=== PATIENT | female | born 1990 | race African-American/Black ===

== ENCOUNTER 2017-01-23 11:41 | Emergency (ER) | payer OTHER ==
[~2017-01-23] VITALS: Ht 157.5 cm; Wt 108.9 kg
[~2017-01-23 11:41] MED LIST: ALBU17AE3 IH; ASPI1POW PO; AZIT-21 PO; BIOT1TAB2 PO; CEFU500T63 PO; CEPH500C PO; CRUT1EAC16 MC; ESTR1TAB24 PO; FERR-74 PO; GUAI120L56 PO; HYDR-1231 PO; IBUP-1780 PO; METR500T21 PO; NORG1TAB14 PO; NORG1TAB15 PO; PHEN100T17 PO; PRD20T PO; PRM25T PO; SULF1TAB35 PO; SULF1TAB7 PO; TRAM50TA2 PO
[2017-01-23 12:31] LABS: BASOPHILS % (AUTO) 0 % (0-10); EOSINOPHILS # (AUTO) 0.1 10^3/uL (0.0-0.3); EOSINOPHILS % (AUTO) 2 % (0-10); LYMPHOCYTES # (AUTO) 2.5 X 10^3 (1.0-4.0); LYMPHOCYTES % (AUTO) 39 % (12-44); MEAN CORPUSCULAR HEMOGLOBIN 27 PG (25-34); MEAN CORPUSCULAR HGB CONC 33 G/DL (32-36); MEAN CORPUSCULAR VOLUME 83 FL (80-99); MEAN PLATELET VOLUME 10.4 FL (7.4-10.4); MONOCYTES # (AUTO) 0.3 X 10^3 (0.0-1.0); MONOCYTES % (AUTO) 5 % (0-12); NEUTROPHILS # (AUTO) 3.5 X 10^3 (1.8-7.8); NEUTROPHILS % (AUTO) 54 % (42-75); PLATELET COUNT 369 10^3/uL (130-400); RED BLOOD COUNT 4.23 10^6/uL (4.35-5.85); RED CELL DISTRIBUTION WIDTH 14.9 % (10.0-14.5); WHITE BLOOD COUNT 6.4 10^3/uL (4.3-11.0)
[2017-01-23 12:34] LABS: BILIRUBIN,URINE NEGATIVE (NEGATIVE); KETONES,URINE NEGATIVE (NEGATIVE); LEUKOCYTE ESTERASE ,URINE NEGATIVE (NEGATIVE); NITRITE,URINE NEGATIVE (NEGATIVE); PH,URINE 5 (5-9); PROTEIN,URINE 1+ (NEGATIVE); UROBILINOGEN,URINE NORMAL (NORMAL)
[2017-01-23 12:43] LABS: SQUAMOUS EPITHELIAL CELL,UR 0-2 /HPF
[2017-01-23] MEDS ORDERED: KETOROLAC 30 MG/ML VIAL IVP ONE (12:45)
[2017-01-23 12:49] LABS: ALANINE AMINOTRANSFERASE 13 U/L (0-55); ANION GAP 7 MMOL/L (5-14); ASPARTATE AMINO TRANSFERASE 15 U/L (5-34); BILIRUBIN,TOTAL 0.5 MG/DL (0.1-1.0); BLOOD UREA NITROGEN 10 MG/DL (7-18); BUN/CREATININE RATIO 13; CALCIUM 9.4 MG/DL (8.5-10.1); CARBON DIOXIDE 25 MMOL/L (21-32); CHLORIDE 107 MMOL/L (98-107); CREATININE SERUM 0.77 MG/DL (0.60-1.30); GFR ESTIMATED > 60; GLUCOSE 83 MG/DL (70-105); POTASSIUM 3.9 MMOL/L (3.6-5.0); SODIUM 139 MMOL/L (135-145); TOTAL PROTEIN 8.2 G/DL (6.4-8.2)
--- NOTE | 2017-01-23 12:59 | ED Chest Pain ---
General Chief Complaint: Chest Wall/Rib Pain Stated Complaint: CHEST PAIN/TIGHTNESS Nursing Triage Note: COMPLAINS OF PAIN IN HER CHEST WHEN SHE TAKES A DEEP BREATH THAT BECAME WORSE THIS AM. . STATES SHE THINKS IT IS RELATED TO HER PERIOD AND PASSING LARGE CLOTS. Nursing Sepsis Screen: No Definite Risk Source: patient Exam Limitations: no limitations History of Present Illness Time seen by provider: 12:58 Initial Comments To ER with reports of pain in her chest that is sharp in nature and worse with deep breathing. Became worse this morning but has been going on for one to 2 weeks. She has a mild infrequent dry cough. She does report shortness of breath. Sometimes chest heaviness. No fevers or chills. She also states that she is on her menstrual cycle and has been bleeding more heavily than usual. Timing/Duration: getting worse, intermittent Severity/Quality: moderate Radiation: no radiation Activities at Onset: none Allergies and Home Medications Allergies Coded Allergies: No Known Drug Allergies (Unverified , 07/15/13) Home Medications Albuterol 17 Gm Inh, 2 SPRAY IH Q4H PRN for SHORTNESS OF BREATH, #1 FOR BREATHING Prescribed by: MO ANAND on 04/21/142024 Review of Systems Constitutional: see HPI, No chills, No fever EENTM: No Symptoms Reported Respiratory: See HPI, Cough Cardiovascular: See HPI, Chest Pain, Denies Edema, Denies Irregular Heart Rate , Denies Lightheadedness Gastrointestinal: No Symptoms Reported Genitourinary: No Symptoms Reported Musculoskeletal: no symptoms reported Skin: no symptoms reported Psychiatric/Neurological: No Symptoms Reported Endocrine: No Symptoms Reported Past Axhouxh-Jdwomy-Bdzmwb Hx Patient Social History Alcohol Use: Occasionally Uses Recreational Drug Use: No Smoking Status: Never a Smoker Recent Foreign Travel: No Contact w/Someone Who Travel: No Recent Infectious Disease Expo: No Immunizations Up To Date Tetanus Booster (TDap): More than 5yrs PED Vaccines UTD: Yes Seasonal Allergies Seasonal Allergies: Yes Surgeries HX Surgeries: No Respiratory Hx Respiratory Disorders: Yes Respiratory Disorders: Asthma Cardiovascular Hx Cardiac Disorders: No Neurological Hx Neurological Disorders: No Reproductive System Hx Reproductive Disorders: No Sexually Transmitted Disease: Yes HIV/AIDS: No 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, Ovarian Cyst Genitourinary Hx Genitourinary Disorders: No Gastrointestinal Hx Gastrointestinal Disorders: No Musculoskeletal Hx Musculoskeletal Disorders: No Endocrine Hx Endocrine Disorders: No HEENT HX ENT Disorders: No Cancer Hx Cancer: No Psychosocial Hx Psychiatric Problems: No Integumentary HX Skin/Integumentary Disorder: No Blood Transfusions Hx Blood Disorders: No Family Medical History Family Medial History: Diabetes mellitus 19 MOTHER FH: breast cancer in first degree relative 19 MOTHER Physical Exam Vital Signs Vital Sign - Last 12Hours 01/23/17 11:59 Temp 98.0 Pulse 91 Resp 16 B/P (MAP) 114/74 Pulse Ox 97 Capillary Refill : Less Than 3 Seconds General Appearance: No Apparent Distress, WD/WN, Obese HEENT: PERRL/EOMI, TMs Normal Respiratory: Lungs Clear, Normal Breath Sounds, No Accessory Muscle Use, No Respiratory Distress, Other (chest is tender to palpation.) Cardiovascular: Regular Rate, Rhythm, Normal Peripheral Pulses Gastrointestinal: Normal Bowel Sounds, Non Tender, Soft Extremity: Normal Capillary Refill, Normal Inspection Neurologic/Psychiatric: Alert, Oriented x3, No Motor/Sensory Deficits Skin: Normal Color, Warm/Dry Progress/Results/Core Measures Results/Orders Lab Results Laboratory Tests Test 01/23/17 12:25 01/23/17 12:27 Range/Units White Blood Count 6.4 4.3-11.0 10^3/uL Red Blood Count 4.23 L 4.35-5.85 10^6/uL Hemoglobin 11.4 L 11.5-16.0 G/DL Hematocrit 35 35-52 % Mean Corpuscular Volume 83 80-99 FL Mean Corpuscular Hemoglobin 27 25-34 PG Mean Corpuscular Hemoglobin Concent 33 32-36 G/DL Red Cell Distribution Width 14.9 H 10.0-14.5 % Platelet Count 369 130-400 10^3/uL Mean Platelet Volume 10.4 7.4-10.4 FL Neutrophils (%) (Auto) 54 42-75 % Lymphocytes (%) (Auto) 39 12-44 % Monocytes (%) (Auto) 5 0-12 % Eosinophils (%) (Auto) 2 0-10 % Basophils (%) (Auto) 0 0-10 % Neutrophils # (Auto) 3.5 1.8-7.8 X 10^3 Lymphocytes # (Auto) 2.5 1.0-4.0 X 10^3 Monocytes # (Auto) 0.3 0.0-1.0 X 10^3 Eosinophils # (Auto) 0.1 0.0-0.3 10^3/uL Basophils # (Auto) 0.0 0.0-0.1 10^3/uL Sodium Level 139 135-145 MMOL/L Potassium Level 3.9 3.6-5.0 MMOL/L Chloride Level 107 98-107 MMOL/L Carbon Dioxide Level 25 21-32 MMOL/L Anion Gap 7 5-14 MMOL/L Blood Urea Nitrogen 10 7-18 MG/DL Creatinine 0.77 0.60-1.30 MG/DL Estimat Glomerular Filtration Rate > 60 BUN/Creatinine Ratio 13 Glucose Level 83 70-105 MG/DL Calcium Level 9.4 8.5-10.1 MG/DL Total Bilirubin 0.5 0.1-1.0 MG/DL Aspartate Amino Transf (AST/SGOT) 15 5-34 U/L Alanine Aminotransferase (ALT/SGPT) 13 0-55 U/L Alkaline Phosphatase 81 40-136 U/L Total Protein 8.2 6.4-8.2 G/DL Albumin 4.0 3.2-4.5 G/DL Urine Color YELLOW Urine Clarity CLEAR Urine pH 5 5-9 Urine Specific [place] 1.020 1.016-1.022 Urine Protein 1+ H NEGATIVE Urine Glucose (UA) NEGATIVE NEGATIVE Urine Ketones NEGATIVE NEGATIVE Urine Nitrite NEGATIVE NEGATIVE Urine Bilirubin NEGATIVE NEGATIVE Urine Urobilinogen NORMAL NORMAL MG/DL Urine Leukocyte Esterase NEGATIVE NEGATIVE Urine RBC (Auto) 5+ H NEGATIVE Urine RBC 50-100 H /HPF Urine WBC NONE /HPF Urine Squamous Epithelial Cells 0-2 /HPF Urine Crystals NONE /LPF Urine Bacteria NEGATIVE /HPF Urine Casts NONE /LPF Urine Mucus NEGATIVE /LPF Urine Culture Indicated NO My Orders Orders - MO ANAND H[employer]TING [employer]IDE Cbc With Automated Diff (01/23/17 12:04) Saline Lock/Iv-Start (01/23/17 12:04) Ua Culture If Indicated (01/23/17 12:04) Urine Bedside (01/23/17 12:04) Ekg Tracing (01/23/17 12:04) Chest 1 View, Ap/Pa Only (01/23/17 12:04) Comprehensive Metabolic Panel (01/23/17 12:25) Ct Angio Chest W (01/23/17 12:25) Ketorolac Injection (Toradol Injection) (01/23/17 12:45) Iohexol Injection (Omnipaque 350 Mg/Ml 1 (01/23/17 13:15) Ns (Ivpb) (Sodium Chloride 0.9% Ivpb Bag (01/23/17 13:15) Medications Given in ED Current Medications Medications Dose Ordered Sig/Florentin Route Start Time Stop Time Status Last Admin Dose Admin Iohexol 125 ml ONCE ONCE IV 01/23/17 13:15 01/23/17 13:16 DC 01/23/17 13:45 125 ML Ketorolac Tromethamine 30 mg ONCE ONCE IVP 01/23/17 12:45 01/23/17 12:46 DC 01/23/17 12:54 30 MG Sodium Chloride 80 ml ONCE ONCE IV 01/23/17 13:15 01/23/17 13:16 DC 01/23/17 13:45 80 ML Vital Signs/I&O Vital Sign - Last 12Hours 01/23/17 11:59 Temp 98.0 Pulse 91 Resp 16 B/P (MAP) 114/74 Pulse Ox 97 Blood Pressure Mean: 87 Point of Care Testing Urine -Bedside: Negative Diagnostic Imaging Diagonstic Imaging: CT Comments NAME: [facility] REC#: [id number] PT STATUS: REG ER : 1990 PHYSICIAN: MO ANAND [employer] GUIDE ADMIT DATE: 01/23/17/ER Draft Date of Exam:01/23/17 CT ANGIO CHEST W PROCEDURE: CT angiography of the chest with contrast. TECHNIQUE: Multiple contiguous axial images were obtained through the chest after uneventful bolus administration of intravenous contrast. Reconstructed CTA MIP acquisitions were also performed. INDICATION: Chest pain. 125 mL of Omnipaque-350 is administered intravenously. COMPARISON: 01/09/2015. FINDINGS: There is good opacification of the pulmonary arteries with no filling defects to suggest pulmonary embolism. The thoracic aorta is normal in caliber. No dissection or aneurysm. The heart size is borderline enlarged. There is no pericardial or pleural effusion. Anterior mediastinal soft tissue density is suggestive of the thymus with no mediastinal mass or lymphadenopathy seen. No axillary or hilar lymphadenopathy. The lungs demonstrate no significant consolidation or mass. The sections in the upper abdomen appear unremarkable. The osseous structures appear grossly unremarkable. IMPRESSION: There is no PE or aortic dissection. Borderline cardiac size. Dictated on workstation # [id number] Dict: 01/23/17 1415 Trans: 01/23/17 1432 [id number] Interpreted by: MICAH BOYD MD Electronically signed by: Departure Communication Progress Notes 1402 patient reports feeling significant short of breath at this time. Her respiratory rate is 22 and oxygen saturation 100 percent on room air.- Impression Impression: Primary Impression: Dyspnea Disposition: HOME, SELF-CARE Condition: Stable Departure-Patient Inst. Decision time for Depature: 14:22 Referrals: NO,LOCAL PHYSICIAN (PCP/Family) Primary Care Physician Patient Instructions: Shortness of Breath (Dyspnea) Add. Discharge Instructions: 1. Follow-up with her regular doctor later this week 2. Return to ER for any worsening 3. All discharge instructions reviewed with patient and/or family. Voiced understanding. MO ANAND APRN January 23, 2017 12:59
--- NOTE | 2017-01-23 13:01 | Diagnostic Imaging Report ---
Portable upright radiograph of the chest. INDICATION: Anterior chest wall pain. FINDINGS: The lungs are clear. The heart size is borderline in size, probably exaggerated by the portable AP technique. No effusion or pneumothorax. The mediastinum and yung appear unremarkable. IMPRESSION: Prominent cardiac size, probably secondary to the portable AP technique. No definite abnormality. Dictated by: Dictated on workstation # [id number]
[2017-01-23] MEDS ORDERED: NS 100 ML (IVPB) BAG IV ONE (13:15)
[2017-01-23] MEDS ORDERED: IOHEXOL 350 MG/ML 150 ML (OMNIPAQUE 350) VIAL IV ONE (13:15)
--- NOTE | 2017-01-23 14:33 | Diagnostic Imaging Report ---
PROCEDURE: CT angiography of the chest with contrast. TECHNIQUE: Multiple contiguous axial images were obtained through the chest after uneventful bolus administration of intravenous contrast. Reconstructed CTA MIP acquisitions were also performed. INDICATION: Chest pain. 125 mL of Omnipaque-350 is administered intravenously. COMPARISON: 01/09/2015. FINDINGS: There is good opacification of the pulmonary arteries with no filling defects to suggest pulmonary embolism. The thoracic aorta is normal in caliber. No dissection or aneurysm. The heart size is borderline enlarged. There is no pericardial or pleural effusion. Anterior mediastinal soft tissue density is suggestive of the thymus with no mediastinal mass or lymphadenopathy seen. No axillary or hilar lymphadenopathy. The lungs demonstrate no significant consolidation or mass. The sections in the upper abdomen appear unremarkable. The osseous structures appear grossly unremarkable. IMPRESSION: There is no PE or aortic dissection. Borderline cardiac size. Dictated by: Dictated on workstation # [id number]
[2017-01-23 14:46] VITALS: BP 124/87
== END 2017-01-23 14:46 | disposition home or self-care (01) ==
LOC: EDUNIT# 11:41 → ER 11:45
DX: R06.00 Dyspnea, unspecified (principal)
CPT/HCPCS: 36415; 71010; 71275; 80053; 81000; 84703; 85025

== ENCOUNTER → 2017-06-17 | Outpatient (CLI) | payer OTHER, BC ==
[~2017-06-17] MED LIST changes: +HYDR-3812 PO; +IBUP-1773 PO; +RT-ALBUINH IH
--- NOTE | 2017-06-17 14:28 | Diagnostic Imaging Report ---
Transabdominal and transvaginal pelvic ultrasound. INDICATION: Pelvic pain. FINDINGS: The uterus is 7.8 x 4.9 x 4.4 cm. The endometrial stripe is 0.5 cm in thickness. The myometrium is slightly heterogeneous with a posterior myometrial body hypoechoic lesion with suggestion of calcification seen measuring 1.9 x 1.9 x 2.4 cm compatible with a fibroid. This does not have a submucosal component or an exophytic component. The right ovary is 3.9 x 1.8 x 2.6 cm. The left ovary is 1.7 x 2.6 x 1.3 cm. Arterial and venous waveforms are demonstrated over both ovaries. IMPRESSION: 2.4 cm myometrial fibroid is seen in the posterior aspect of the uterine body. Dictated by: Dictated on workstation # [id number]
== END ==
LOC: RAD 13:12
PROVIDERS: ATTEND Obstetrics & Gynecology
DX: D25.9 Leiomyoma of uterus, unspecified (principal)
CPT/HCPCS: 76830; 76856

== ENCOUNTER 2017-06-18 11:09 | Outpatient (CLI) | payer OTHER, BC ==
[~2017-06-18] VITALS: Ht 157.5 cm; Wt 108.9 kg
[~2017-06-18 11:09] MED LIST changes: -HYDR-3812 PO; -IBUP-1773 PO; -RT-ALBUINH IH
[2017-06-18] MEDS ORDERED: RT-ALBUINH IH ×2 (11:19)
[2017-06-19] MEDS ORDERED: HYDR-3812 PO ×2 (10:16)
[2017-06-19] MEDS ORDERED: IBUP-1773 PO ×2 (11:51)
== END 2017-06-18 11:24 ==
LOC: PREOP 11:09
PROVIDERS: ATTEND Obstetrics & Gynecology
DX: Z01.818 Encounter for other preprocedural examination (principal); N93.8 Other specified abnormal uterine and vaginal bleeding

== ENCOUNTER 2017-06-19 09:07 | Day surgery (SDC) | payer OTHER, BC ==
[~2017-06-19] VITALS: Ht 157.5 cm; Wt 108.9 kg
[~2017-06-19 09:07] MED LIST changes: +RT-ALBUINH IH
[2017-06-19 09:21] VITALS: BP 131/89
[2017-06-19] MEDS ORDERED: LACTATED RINGERS 1,000 ML IV SCH (09:30)
--- NOTE | 2017-06-19 09:37 | Progress Note-Pre Operative ---
Pre-Operative Progress Note H&P Reviewed The H&P was reviewed, patient examined and no changes noted. Date Seen by Provider: Jun 19, 2017 Time Seen by Provider: 09: Date H&P Reviewed: Jun 19, 2017 Time H&P Reviewed: :30 Pre-Operative Diagnosis: AUB, Menorrahagia ROJAS CHANG DO Jun 19, 2017 09:37
[2017-06-19 09:43] LABS: BASOPHILS % (AUTO) 0 % (0-10); EOSINOPHILS # (AUTO) 0.1 10^3/uL (0.0-0.3); EOSINOPHILS % (AUTO) 2 % (0-10); LYMPHOCYTES # (AUTO) 2.5 X 10^3 (1.0-4.0); LYMPHOCYTES % (AUTO) 44 % (12-44); MEAN CORPUSCULAR HEMOGLOBIN 24 PG (25-34); MEAN CORPUSCULAR HGB CONC 32 G/DL (32-36); MEAN CORPUSCULAR VOLUME 75 FL (80-99); MEAN PLATELET VOLUME 9.9 FL (7.4-10.4); MONOCYTES # (AUTO) 0.3 X 10^3 (0.0-1.0); MONOCYTES % (AUTO) 5 % (0-12); NEUTROPHILS # (AUTO) 2.9 X 10^3 (1.8-7.8); NEUTROPHILS % (AUTO) 49 % (42-75); PLATELET COUNT 400 10^3/uL (130-400); RED BLOOD COUNT 4.13 10^6/uL (4.35-5.85); RED CELL DISTRIBUTION WIDTH 17.2 % (10.0-14.5); WHITE BLOOD COUNT 5.8 10^3/uL (4.3-11.0)
[2017-06-19] MEDS ORDERED: MIDAZOLAM 2 MG/2 ML (VERSED) VIAL ONE ×2 (10:08→10:45)
[2017-06-19] MEDS ORDERED: fentaNYL INJECTION 100 MCG/2 ML AMP ONE (10:08)
[2017-06-19] MEDS ORDERED: SEVOFLURANE (ULTANE) 15 ML INHAL SOLN ONE ×3 (10:09→11:40)
[2017-06-19] MEDS ORDERED: proPOfol 200 MG/20 ML (DIPRIVAN) VIAL IV ONE (10:09)
[2017-06-19] MEDS ORDERED: DEXAMETHASONE 10 MG/ML (DECADRON) 1 ML VIAL ONE (10:09)
[2017-06-19] MEDS ORDERED: ONDANSETRON 4 MG/2 ML (SDV) Z0FRAN ONE (10:09)
[2017-06-19] MEDS ORDERED: LIDOCAINE PF 2% 5 ML (XYLOCAINE) VIAL ONE (10:09)
[2017-06-19] MEDS ORDERED: HYDR-3812 PO ×2 (10:16)
[2017-06-19] MEDS ORDERED: BUPIVACAINE 0.25% 30 ML (SENSORCAINE) VIAL ONE (10:33)
--- NOTE | 2017-06-19 11:49 | Progress Note-Post Operative ---
Post-Operative Progess Note Surgeon (s)/Marketing Strategy Lead (s) Surgeon ROJAS CHANG DO Marketing Strategy Lead: none Pre-Operative Diagnosis AUB, Menorrahagia Post-Operative Diagnosis same Procedure & Operative Findings Date of Procedure 06/19/17 Procedure Performed/Findings D and C with hysteroscopy Anesthesia Type GETA Estimated Blood Loss Estimated blood loss (mL): min Specimens/Packing Specimens Removed endometrial curettings ROJAS CHANG DO Jun 19, 2017 11:49 am
--- NOTE | 2017-06-19 11:50 | Discharge Inst-Women's Service ---
Discharge Inst-Women's Serv Depart Medication/Instructions New, Converted or Re-Newed RX: RX on Chart Consults/Follow Up Additional Follow Up: Yes Orders/Referrals DR. Chang in 2-3 weeks Activity Activity: Activity as Tolerated Driving Instructions: No Driving for 1 Week NO SMOKING: NO SMOKING Nothing Inside Vagina: No Douching, No [place], No Tampons Diet Discharge Diet: No Restrictions Symptoms to Report to : Bleeding Excessive, Pain Increased, Fever Over 101 Degrees F, Vaginal Bleeding Increase, Questions/Concerns For Any Problems or Questions: Contact Your Physician ROJAS CHANG DO Jun 19, 2017 11:50 am
[2017-06-19] MEDS ORDERED: IBUP-1773 PO ×2 (11:51)
[2017-06-19] MEDS ORDERED: ONDANSETRON 4 MG/2 ML (SDV) Z0FRAN IVP PRN (12:00)
[2017-06-19] MEDS ORDERED: MEPERIDINE (DEMEROL) INJ 50 MG/ML IVP PRN (12:00)
[2017-06-19] MEDS ORDERED: morphine INJ 10 MG/ML 1ML (SYR OR VIAL) ONE (12:01)
[2017-06-19] MEDS: morphine INJ 10 MG/ML 1ML (SYR OR VIAL) IVP PRN ×2 (12:09→12:18)
[2017-06-19] MEDS ORDERED: KETOROLAC 30 MG/ML VIAL IVP NR (12:30)
[2017-06-19 12:55] VITALS: BP 135/89
[2017-06-19 13:25] VITALS: BP 129/89
[2017-06-19 13:55] VITALS: BP 124/83
--- NOTE | 2017-06-20 01:54 | OPERATIVE REPORT ---
DATE OF SERVICE: PREOPERATIVE DIAGNOSES: 1. A 26-year-old female with abnormal uterine bleeding. 2. Vaginal hemorrhage. POSTOPERATIVE DIAGNOSES: 1. A 26-year-old female with abnormal uterine bleeding. 2. Vaginal hemorrhage. PROCEDURE: D and C with video hysteroscopy. SURGEON: Dr. Rojas Chang. ANESTHESIA: General endotracheal. EBL: Minimal. URINE OUTPUT: 50 mL, drained at the end of the procedure. FLUIDS: 700 mL of lactated Ringer's solution. FINDINGS: Normal size uterine cavity with bilateral patent tubal ostia. Copious amounts of endometrial fluffy-appearing tissue. Grossly normal cervix, vagina and vaginal mucosa. SPECIMEN SENT: Endometrial curetting. INDICATION FOR PROCEDURE: This 26-year-old female is a patient that has been in my office for 3 to 4 years. We have been following her for controlling her bleeding due to her BMI. She has always had an increased level of peripheral aromatization, which has lended to her irregular bleeding periods. She is now attempting and has noted in the past week she has passed a large amount of bleeding including some very large baseball size clots. Due to this ongoing issue and despite failure to control this bleeding using the patient's own control pills prior to seeing me, I discussed with the patient proceeding with D and C, hysteroscopy for the possibility of there being an intrauterine endometrial pathology causing this bleeding or her infertility. Risk of the procedure discussed with the patient in detail. After all of her questions were answered with her present at the bedside in the preoperative area, consent was obtained and the patient was taken to the operating room. OPERATIVE REPORT IN DETAIL: Once in the operating room, general anesthesia was found to be adequate, was placed in dorsolithotomy position, prepped and draped in normal sterile fashion. A weighted speculum was inserted in the patient's vagina and a right-angle retractor was used to visualize the cervix. It was grasped at the 12 o'clock position using a long Allis clamp and then performed a paracervical block at 3 and 9 o'clock positions using 0.25% Marcaine and 5 mL injected into each site. Care was taken to aspirate before injecting. I then gently dilated the cervix using Hegar dilators to maximum dilatation of approximately 6 mm. I then advanced a hysteroscope using normal saline as my visual medium. I am able to visualize the intrauterine cavity, which appears grossly normal except for copious amounts of fluffy endometrial tissue. Bilateral tubal ostia are appreciated as well. There is no other gross intracavitary abnormality. I then removed the hysteroscope and performed a gentle curettage using a medium size endometrial curette and sent this as endometrial curettings, at which point there was no active bleeding noted from the patient. All other instruments were then removed from the patient's vagina. The patient tolerated the procedure well and sent to recovery area in stable condition after her bladder was drained using straight catheterization. Lap and sponge counts were correct at the end of the procedure. Instrument count was correct as well. Job ID: [id number] DocumentID: [id number] Dictated Date: 06/19/2017 12:03:57 Outside Plant Technician Date: 06/19/2017 17:16:34 Dictated By: ROJAS CHANG DO
== END 2017-06-19 14:30 | disposition home or self-care (01) ==
LOC: SDC 09:07
PROVIDERS: ATTEND Obstetrics & Gynecology
DX: N93.9 Abnormal uterine and vaginal bleeding, unspecified (principal); J45.909 Unspecified asthma, uncomplicated; E66.01 Morbid (severe) obesity due to excess calories; Z68.41 Body mass index [BMI] 40.0-44.9, adult
CPT/HCPCS: 36415; 84703; 85025; 86850; 86900; 86901; 87081

== ENCOUNTER 2017-11-26 09:06 | Emergency (ER) | payer OTHER, BC ==
[~2017-11-26] VITALS: Ht 157.5 cm; Wt 108.9 kg
[~2017-11-26 09:06] MED LIST changes: +ACHD5005 PO; -FERR-74 PO; +FERR325T18 PO; +IBUP-1773 PO
[2017-11-26] MEDS ORDERED: fentaNYL INJECTION 100 MCG/2 ML AMP IVP STA (09:25)
[2017-11-26 10:06] LABS: BASOPHILS % (AUTO) 0 % (0-10); EOSINOPHILS # (AUTO) 0.1 10^3/uL (0.0-0.3); EOSINOPHILS % (AUTO) 1 % (0-10); HEMATOCRIT 31 % (35-52); HEMOGLOBIN 10.1 G/DL (11.5-16.0); LYMPHOCYTES # (AUTO) 2.4 X 10^3 (1.0-4.0); LYMPHOCYTES % (AUTO) 33 % (12-44); MEAN CORPUSCULAR HEMOGLOBIN 25 PG (25-34); MEAN CORPUSCULAR HGB CONC 32 G/DL (32-36); MEAN CORPUSCULAR VOLUME 77 FL (80-99); MEAN PLATELET VOLUME 10.1 FL (7.4-10.4); MONOCYTES # (AUTO) 0.4 X 10^3 (0.0-1.0); MONOCYTES % (AUTO) 5 % (0-12); NEUTROPHILS # (AUTO) 4.4 X 10^3 (1.8-7.8); NEUTROPHILS % (AUTO) 61 % (42-75); PLATELET COUNT 448 10^3/uL (130-400); RED BLOOD COUNT 4.04 10^6/uL (4.35-5.85); RED CELL DISTRIBUTION WIDTH 16.9 % (10.0-14.5); WHITE BLOOD COUNT 7.3 10^3/uL (4.3-11.0)
[2017-11-26] MEDS ORDERED: ONDANSETRON 4 MG (ZOFRAN) ORAL DISSOLVE TAB SL STA (10:19)
[2017-11-26 10:25] LABS: ALANINE AMINOTRANSFERASE 22 U/L (0-55); ALKALINE PHOSPHATASE 69 U/L (40-136); BILIRUBIN,TOTAL 0.6 MG/DL (0.1-1.0); BUN/CREATININE RATIO 10; CALCIUM 9.3 MG/DL (8.5-10.1); CARBON DIOXIDE 24 MMOL/L (21-32); CHLORIDE 103 MMOL/L (98-107); CREATININE SERUM 0.78 MG/DL (0.60-1.30); GFR ESTIMATED > 60; GLUCOSE 91 MG/DL (70-105); POTASSIUM 4.1 MMOL/L (3.6-5.0); SODIUM 136 MMOL/L (135-145); TOTAL PROTEIN 8.2 GM/DL (6.4-8.2)
--- NOTE | 2017-11-26 10:51 | ED GU-Female ---
General Chief Complaint: -Female Stated Complaint: BACK PACK Nursing Triage Note: c/o excessive vaginal bleeding. Reports irregular periods. Had D&C performed in Jun 17. Nursing Sepsis Screen: No Definite Risk Source: patient Exam Limitations: no limitations History of Present Illness Date Seen by Provider: Nov 26, 2017 Time Seen by Provider: 09:20 Initial Comments Here with report of excessive vaginal bleeding. States that she missed her period in October and then started having a period early October. She had a negative home test in between. Since early October, she has been bleeding quite a bit and certainly worse over the last day or 2. She reports increasing abdominal pain and difficulty with bowel movement. She states that she feels pressure vaginally and rectally. She's never had anything like this before. Last sexual activity was before she started bleeding with this menstrual period. She denies pain with that. She called her oncologist office today who could not see her until tomorrow. Due to the pain, she presented here for further evaluation. Timing/Duration: getting worse Severity/Quality: moderate, cramping Location: vaginal Radiation: other (rectal) Activities at Onset: none Sexual [place] History: less than 2 months ago, single partner Modifying Factors: Worsens With Movement Associated Symptoms: No fever/chills, lower back pain, No nausea/vomiting, No urinary frequency Allergies and Home Medications Allergies Coded Allergies: No Known Drug Allergies (Unverified , 06/18/17) Home Medications Albuterol Sulfate 6.7 Gm Hfa.aer.ad, 2 PUFF IH Q6H PRN for SHORTNESS OF BREATH, (Reported) Hydrocodone Bit/Acetaminophen 1 Each Tablet, 2 EACH PO Q6H PRN for PAIN, ( Reported) Hydrocodone Bit/Acetaminophen 1 Tab Tab, 1-2 EACH PO Q6H PRN for PAIN-MODERATE Prescribed by: ROSENDA ISLAS on 11/26/17 1202 Ibuprofen 600 Mg Tablet, 600 MG PO Q6H Prescribed by: ROJAS CHANG on 06/19/17 1151 Patient Home Medication List Home Medication List Reviewed: Yes Constitutional: see HPI, No chills, No fever EENTM: no symptoms reported Respiratory: no symptoms reported Cardiovascular: no symptoms reported Gastrointestinal: No abdominal pain, No nausea, No vomiting Genitourinary: denies dysuria, pain, denies urgency : No Musculoskeletal: no symptoms reported Skin: no symptoms reported Psychiatric/Neurological: No Symptoms Reported All Other Systemes Reviewed Negative Unless Noted: Yes Past Igybibv-Dqwbyt-Iuyxlu Hx Patient Social History Alcohol Use: Occasionally Uses Number of Drinks Today: AA Alcohol Beverage of Choice: Beer Recreational Drug Use: No Recent Foreign Travel: No Contact w/Someone Who Travel: No Recent Infectious Disease Expo: No Recent Hopitalizations: No Immunizations Up To Date Tetanus Booster (TDap): More than 5yrs PED Vaccines UTD: Yes Date of Influenza Vaccine: Jun 06, 2017 Seasonal Allergies Seasonal Allergies: Yes Surgeries History of Surgeries: No Respiratory History of Respiratory Disorde: Yes Respiratory Disorders: Asthma Currently Using CPAP: No Currently Using BIPAP: No Cardiovascular History of Cardiac Disorders: No Neurological History of Neurological Disord: No Neurological Disorders: Headaches /Migraines Reproductive System Hx Reproductive Disorders: Yes (AUB) Sexually Transmitted Disease: No HIV/AIDS: No Female Reproductive Disorders: Menstrual Problems, Pelvic Inflammatory Dis, Ovarian Cyst Genitourinary History of Genitourinary Disor: No Genitourinary Disorders: UTI-Chronic Gastrointestinal History of Gastrointestinal Di: No Gastrointestinal Disorders: Gastroesophageal Reflux Musculoskeletal History of Musculoskeletal Dis: No Endocrine History of Endocrine Disorders: No HEENT History of HEENT Disorders: No Loss of Vision: Denies Hearing Impairment: Denies Cancer History of Cancer: No Psychosocial History of Psychiatric Problem: No Behavioral Health Disorders: Anxiety, Depression Integumentary History of Skin or Integumenta: No Skin/Integumentary Disorders: Eczema Blood Transfusions History of Blood Disorders: No Adverse Reaction to a Blood Tr: No (N/A) Reviewed Nursing Assessment Reviewed/Agree w Nursing PMH: Yes Family Medical History Significant Family History: No Pertinent Family Hx Family Medial History: Diabetes mellitus 19 MOTHER FH: breast cancer in first degree relative 19 MOTHER Physical Exam Vital Signs Vital Signs - First Documented 11/26/17 09:23 Temp 97.5 Pulse 97 Resp 16 B/P (MAP) 126/66 (86) Pulse Ox 84 O2 Delivery Room Air Capillary Refill : Less Than 3 Seconds General Appearance: WD/WN, no apparent distress HEENT: PERRL/EOMI, pharynx normal Neck: full range of motion, supple Cardiovascular: regular rate, rhythm, no murmur Respiratory: lungs clear, normal breath sounds Gastrointestinal: soft, rebound, tenderness (lower abdomen bilateral and suprapubic, left greater than right) Back: normal inspection, no CVA tenderness, no vertebral tenderness Extremities: non-tender, normal inspection Neurologic/Psychiatric: alert, oriented x 3 Skin: normal color, warm/dry Progress/Results/Core Measures Suspected Sepsis Recent Fever Within 48 Hours: No Infection Criteria Present: Suspected New Infection New/Unexplained Altered Menta: No Sepsis Screen: No Definite Risk Sepsis Diagnosis: SIRS Temperature:97.5 Pulse: 97 Respiratory Rate: 16 Laboratory Tests 11/26/17 09:30: White Blood Count 7.3 Blood Pressure 126 /66 Mean: 86 Laboratory Tests 11/26/17 09:30: Creatinine 0.78, Platelet Count 448H, Total Bilirubin 0.6 Results/Orders Lab Results Laboratory Tests Test 11/26/17 09:30 11/26/17 11:30 Range/Units White Blood Count 7.3 4.3-11.0 10^3/uL Red Blood Count 4.04 L 4.35-5.85 10^6/uL Hemoglobin 10.1 L 11.5-16.0 G/DL Hematocrit 31 L 35-52 % Mean Corpuscular Volume 77 L 80-99 FL Mean Corpuscular Hemoglobin 25 25-34 PG Mean Corpuscular Hemoglobin Concent 32 32-36 G/DL Red Cell Distribution Width 16.9 H 10.0-14.5 % Platelet Count 448 H 130-400 10^3/uL Mean Platelet Volume 10.1 7.4-10.4 FL Neutrophils (%) (Auto) 61 42-75 % Lymphocytes (%) (Auto) 33 12-44 % Monocytes (%) (Auto) 5 0-12 % Eosinophils (%) (Auto) 1 0-10 % Basophils (%) (Auto) 0 0-10 % Neutrophils # (Auto) 4.4 1.8-7.8 X 10^3 Lymphocytes # (Auto) 2.4 1.0-4.0 X 10^3 Monocytes # (Auto) 0.4 0.0-1.0 X 10^3 Eosinophils # (Auto) 0.1 0.0-0.3 10^3/uL Basophils # (Auto) 0.0 0.0-0.1 10^3/uL Sodium Level 136 135-145 MMOL/L Potassium Level 4.1 3.6-5.0 MMOL/L Chloride Level 103 98-107 MMOL/L Carbon Dioxide Level 24 21-32 MMOL/L Anion Gap 9 5-14 MMOL/L Blood Urea Nitrogen 8 7-18 MG/DL Creatinine 0.78 0.60-1.30 MG/DL Estimat Glomerular Filtration Rate > 60 BUN/Creatinine Ratio 10 Glucose Level 91 70-105 MG/DL Calcium Level 9.3 8.5-10.1 MG/DL Total Bilirubin 0.6 0.1-1.0 MG/DL Aspartate Amino Transf (AST/SGOT) 22 5-34 U/L Alanine Aminotransferase (ALT/SGPT) 22 0-55 U/L Alkaline Phosphatase 69 40-136 U/L Total Protein 8.2 6.4-8.2 GM/DL Albumin 4.0 3.2-4.5 GM/DL Serum Test, Qualitative NEGATIVE NEGATIVE Urine Color BROWN H Urine Clarity VERY CLOUDY H Urine pH 5 5-9 Urine Specific Leonore 1.020 1.016-1.022 Urine Protein 2+ H NEGATIVE Urine Glucose (UA) NEGATIVE NEGATIVE Urine Ketones 1+ H NEGATIVE Urine Nitrite NEGATIVE NEGATIVE Urine Bilirubin NEGATIVE NEGATIVE Urine Urobilinogen NORMAL NORMAL MG/DL Urine Leukocyte Esterase 1+ H NEGATIVE Urine RBC (Auto) 5+ H NEGATIVE Urine RBC TNTC H /HPF Urine WBC RARE /HPF Urine Squamous Epithelial Cells 0-2 /HPF Urine Crystals NONE /LPF Urine Bacteria NEGATIVE /HPF Urine Casts NONE /LPF Urine Mucus NEGATIVE /LPF Urine Culture Indicated NO My Orders Orders - ROSENDA ISLAS MD Cbc With Automated Diff (11/26/17 09:25) Comprehensive Metabolic Panel (11/26/17 09:25) Hcg,Qualitative Serum (11/26/17 09:25) Ua Culture If Indicated (11/26/17 09:25) Saline Lock/Iv-Start (11/26/17 09:25) Fentanyl Injection (Sublimaze Injection (11/26/17 09:25) Ondansetron Oral Dissolve Tab (Zofran (11/26/17 10:19) Ns Iv 1000 Ml (Sodium Chloride 0.9%) (11/26/17 11:04) Us Non Ob Pelvis Comp/Transvag (11/26/17 10:21) Medications Given in ED Current Medications Medications Dose Ordered Sig/Florentin Route Start Time Stop Time Status Last Admin Dose Admin Sodium Chloride 1,000 ml @ 0 mls/hr Q0M ONCE IV 11/26/17 11:04 11/26/17 11:05 DC 11/26/17 11:45 1,000 MLS/HR Vital Signs/I&O Vital Sign - Last 12Hours 11/26/17 11/26/17 09:23 09:52 Temp 97.5 97.5 Pulse 97 Resp 16 B/P (MAP) 126/66 (86) Pulse Ox 84 O2 Delivery Room Air Capillary Refill : Less Than 3 Seconds Blood Pressure Mean: 86 Progress Note : Progress Note Seen and evaluated. IV, labs and UA ordered. Fentanyl 50 g IV ordered. Patient did take ibuprofen 800 mg this morning at 8 a.m. 1055: Patient's pain is improved. She did receive Zofran by mouth for nausea after the fentanyl. She states it's 8 out of 10 currently but is declining pain medicine at this point. Ultrasound has been ordered as patient's test is negative. Pending ultrasound. Monitor patient. 1245: Ultrasound shows a fibroid but no other significant finding. Patient received 1 L normal saline IV bolus. We will write for outpatient hydrocodone as this is usually with effective when she has pain. She is to follow-up with Dr. Chang tomorrow. Pelvic deferred as she will see her senior loan processor tomorrow. Discharged home with return precautions. Patient verbalize understanding instructions and agreement with plan. Departure Impression Impression: Primary Impression: Menorrhagia Additional Impression: Anemia Qualified Codes: D64.9 - Anemia, unspecified Disposition: 01 HOME, SELF-CARE Condition: Stable Departure-Patient Inst. Decision time for Depature: 12:02 Referrals: NO,LOCAL PHYSICIAN (PCP/Family) Primary Care Physician Patient Instructions: Anemia Caused by Low Iron, Adult (DC), IRREGULAR VAGINAL BLEEDING Add. Discharge Instructions: All discharge instructions reviewed with patient and/or family. Voiced understanding. Continue ibuprofen 800 mg every 8 hours as needed for pain. Use other pain medication as instructed. Follow-up with Dr. Chang tomorrow as scheduled. Return for worse pain, fever, vomiting, weakness, breathing problems or other concerns as needed. Scripts Hydrocodone Bit/Acetaminophen (Hydrocodone/Acetaminophen 5/325mg Tablet) 1 Tab Tab 1-2 EACH PO Q6H Y for PAIN-MODERATE, #12 TAB 0 Refills Prov: ROSENDA ISLAS MD 11/26/17 Copy Copies To 1: ROJAS CHANG TIMOTHY D MD Nov 26, 2017 10:51
[2017-11-26] MEDS ORDERED: NS IV 1000 ML 1,000 ML IV ONE (11:04)
[2017-11-26 11:37] LABS: BILIRUBIN,URINE NEGATIVE (NEGATIVE); CLARITY,URINE VERY CLOUDY; COLOR,URINE BROWN; GLUCOSE, URINE (UA) NEGATIVE (NEGATIVE); KETONES,URINE 1+ (NEGATIVE); LEUKOCYTE ESTERASE ,URINE 1+ (NEGATIVE); NITRITE,URINE NEGATIVE (NEGATIVE); PH,URINE 5 (5-9); PROTEIN,URINE 2+ (NEGATIVE); UROBILINOGEN,URINE NORMAL (NORMAL)
[2017-11-26] MEDS ORDERED: ACHD5005 PO (12:02)
[2017-11-26 12:14] LABS: BACTERIA,URINE NEGATIVE /HPF; RBC,URINE TNTC /HPF; SQUAMOUS EPITHELIAL CELL,UR 0-2 /HPF; WBC,URINE RARE /HPF
[2017-11-26 13:00] VITALS: BP 122/70
--- NOTE | 2017-11-26 14:31 | Diagnostic Imaging Report ---
Indication: Heavy bleeding. Findings: Transabdominal and transvaginal pelvic sonography was performed. The uterus measures 8.5 x 4.1 x 4.0 cm. No myometrial masses identified. There is a posterior uterine fibroid near the fundus measuring 3.1 x 1.9 x 2.3 cm. Endometrium is 8 mm in thickness. The right ovary measures 2.0 x 1.5 x 2.1 cm and the left ovary measures 2.3 x 1.5 x 1.4 cm. No adnexal mass or free fluid is detected. Impression: Uterine fibroid. No other significant abnormality is detected. Dictated by: Dictated on workstation # [id number]
== END 2017-11-26 13:00 | disposition home or self-care (01) ==
LOC: EDUNIT# 09:06 → ER 09:08
DX: N92.0 Excessive and frequent menstruation with regular cycle (principal); D64.9 Anemia, unspecified; J45.909 Unspecified asthma, uncomplicated; K21.9 Gastro-esophageal reflux disease without esophagitis; F41.9 Anxiety disorder, unspecified; F32.9 Major depressive disorder, single episode, unspecified; Z80.3 Family history of malignant neoplasm of breast; Z87.440 Personal history of urinary (tract) infections; Z87.448 Personal history of other diseases of urinary system; Z79.51 Long term (current) use of inhaled steroids
CPT/HCPCS: 36415; 76830; 76856; 80053; 81000; 84703; 85025; 96361; 96374

== ENCOUNTER 2018-02-20 05:32 | Outpatient (CLI) | payer BC, OTHER ==
[~2018-02-20] VITALS: Ht 157.5 cm; Wt 108.9 kg
[2018-02-20] MEDS ORDERED: BCP PO (09:34)
[2018-02-20] MEDS ORDERED: FERR-84 PO (09:34)
== END 2018-02-20 09:50 | disposition home or self-care (01) ==
LOC: PREOP 05:32
PROVIDERS: ATTEND Obstetrics & Gynecology
DX: Z01.818 Encounter for other preprocedural examination (principal)

== ENCOUNTER → 2018-10-15 | Outpatient (CLI) | payer OTHER ==
[~2018-10-15] MED LIST changes: +BCP PO; +FERR-84 PO; +METR-145 PO; -METR500T21 PO
--- NOTE | 2018-10-15 19:09 | Diagnostic Imaging Report ---
INDICATION: Pain in the upper left breast. COMPARISON: No prior mammograms are available for comparison. TECHNIQUE: Left-sided CC and MLO as well as right MLO 2D and 3D diagnostic mammography was performed. The current study was also evaluated with a Computer Aided Detection (CAD) system. FINDINGS: Both breasts are primarily involutional. There are tiny benign nodules bilaterally. No spiculated mass or malignant appearing microcalcifications are seen. Axillae are unremarkable. IMPRESSION: No mammographic features suspicious for malignancy are identified. Even so, directed sonographic interrogation of the area of pain in the upper left breast is recommended and will be performed today. ACR BI-RADS Category 0: Incomplete. (Needs additional imaging evaluation). Result letter will be mailed to the patient. Note: At least 10% of breast cancer is not imaged by mammography. Dictated by: Dictated on workstation # [id number]
--- NOTE | 2018-10-15 19:41 | Diagnostic Imaging Report ---
INDICATION: Pain in the upper left breast. Correlation is made with diagnostic mammogram earlier same day. FINDINGS: Sonographic interrogation of the area of pain in the upper left breast was performed. No solid or cystic mass is seen. No sonographic abnormality is detected. IMPRESSION: No sonographic abnormality is identified. ACR BI-RADS Category 1: Negative. Dictated by: Dictated on workstation # [id number]
== END ==
LOC: RAD 09:02
PROVIDERS: ATTEND Obstetrics & Gynecology
DX: N64.4 Mastodynia (principal)
CPT/HCPCS: 76642; 77066

== ENCOUNTER → 2018-10-15 | Outpatient (CLI) | payer OTHER ==
--- NOTE | 2018-10-15 10:17 | Diagnostic Imaging Report ---
INDICATION: Right upper quadrant abdominal pain. Gallbladder sonography performed in the routine fashion. FINDINGS: The liver shows normal echogenicity with no focal lesion. Gallbladder is unremarkable with no stones or wall thickening. Common duct measured 5 mm. Pancreas is obscured due to overlying gas. Right kidney was normal and measured 10.0 cm in length. There is no ascites. IMPRESSION: Unremarkable ultrasound of the right upper quadrant. Dictated by: Dictated on workstation # [id number]
== END ==
LOC: RAD 07:35
PROVIDERS: ATTEND Surgery
DX: R10.11 Right upper quadrant pain (principal)
CPT/HCPCS: 76705

== ENCOUNTER → 2018-10-23 | Outpatient (CLI) | payer OTHER ==
[~2018-10-23] MED LIST changes: +CATHETER FLUSH 10 ML SYR IV PRN
--- NOTE | 2018-10-23 16:16 | Diagnostic Imaging Report ---
CLINICAL INDICATION: Patient with right upper quadrant pain. COMPARISON: Right upper quadrant ultrasound dated 10/15/2018. PROCEDURE: The patient was administered 5.37 millicuries of technetium 99m Choletec. After 60 minutes of the images, one can of Ensure was drink followed by another 60 minutes of imaging. A nuclear medicine hepatobiliary scan with ejection fraction was performed. FINDINGS: There is prompt uptake and excretion of radiotracer by the liver. Activity is visible in the gallbladder by 20 minutes and the small bowel by 25 minutes. Ejection fraction of the gallbladder is calculated at 50% (normal >33%). The gallbladder visibly empties on the scans following the ingestion of Ensure. IMPRESSION: Normal hepatobiliary scan with normal gallbladder ejection fraction. Dictated by: Dictated on workstation # [id number]
== END ==
LOC: CARD 12:02
PROVIDERS: ATTEND Nurse Practitioner Family
DX: R10.11 Right upper quadrant pain (principal)
CPT/HCPCS: 78227; 84703

== ENCOUNTER 2018-10-29 05:33 | Outpatient (CLI) | payer OTHER ==
[~2018-10-29] VITALS: Ht 157.5 cm; Wt 122.5 kg
[~2018-10-29 05:33] MED LIST changes: -CATHETER FLUSH 10 ML SYR IV PRN
== END 2018-10-29 14:21 ==
LOC: PREOP 05:33
PROVIDERS: ATTEND Surgery
DX: Z01.818 Encounter for other preprocedural examination (principal)

== ENCOUNTER 2018-11-05 09:17 | Day surgery (SDC) | payer OTHER ==
[~2018-11-05] VITALS: Ht 157.5 cm; Wt 122.5 kg
[2018-11-05 09:30] VITALS: BP 138/87
--- NOTE | 2018-11-05 09:39 | Progress Note-Pre Operative ---
Pre-Operative Progress Note H&P Reviewed The H&P was reviewed, patient examined and no changes noted. Date Seen by Provider: Nov 05, 2018 Time Seen by Provider: 09:30 Date H&P Reviewed: Nov 05, 2018 Time H&P Reviewed: 09:30 Pre-Operative Diagnosis: symptomatic biliary dyskinesia OMER ARREOLA MD Nov 05, 2018 09:39
[2018-11-05] MEDS ORDERED: HYDR-34 PO (09:41)
--- NOTE | 2018-11-05 09:41 | Discharge Inst-Surgical ---
D/C Lap Instructions-MAXWELL New, Converted, or Re-Newed RX: RX on Chart Follow Up Appt in 2 weeks Activity as tolerated No driving for 24 hours No driving while on pain medications Incentive Spirometry use every 2 hours while awake Regular Diet Symptoms to Report: Fever over 101 degree F, Nausea/Vomiting Infection Signs and Symptoms to report: Increased redness, Foul odor of wound, Increased drainage Bathing instructions: May shower Operative Area Clean/Dry; Keep incision clean/dry If any problems/questions: Contact your physician or go to Emergency Room OMER ARREOLA MD Nov 05, 2018 09:41
[2018-11-05] MEDS ORDERED: oxyCODONE/APAP 5/325MG (PERCOCET 5) TABLET PO PRN (09:45)
[2018-11-05] MEDS ORDERED: morphine INJ 10 MG/ML 1ML (SYR OR VIAL) IVP PRN (09:45)
[2018-11-05] MEDS ORDERED: ACETAMINOPHEN 325 MG TABLET PO PRN (09:45)
[2018-11-05] MEDS ORDERED: ONDANSETRON 4 MG/2 ML (SDV) Z0FRAN IVP PRN ×2 (09:45→13:00)
[2018-11-05] MEDS ORDERED: ceFAZolin 2 GM IV Premixed 50 ML IV ONE (09:45)
[2018-11-05] MEDS: LACTATED RINGERS 1,000 ML IV PRN ×2 (09:50→11:45)
[2018-11-05 10:01] LABS: BASOPHILS % (AUTO) 0 % (0-10); EOSINOPHILS # (AUTO) 0.1 10^3/uL (0.0-0.3); EOSINOPHILS % (AUTO) 1 % (0-10); HEMATOCRIT 38 % (35-52); HEMOGLOBIN 12.4 G/DL (11.5-16.0); LYMPHOCYTES # (AUTO) 1.4 X 10^3 (1.0-4.0); LYMPHOCYTES % (AUTO) 24 % (12-44); MEAN CORPUSCULAR HEMOGLOBIN 27 PG (25-34); MEAN CORPUSCULAR HGB CONC 33 G/DL (32-36); MEAN CORPUSCULAR VOLUME 83 FL (80-99); MONOCYTES # (AUTO) 0.2 X 10^3 (0.0-1.0); MONOCYTES % (AUTO) 4 % (0-12); NEUTROPHILS # (AUTO) 4.1 X 10^3 (1.8-7.8); NEUTROPHILS % (AUTO) 71 % (42-75); PLATELET COUNT 359 10^3/uL (130-400); RED CELL DISTRIBUTION WIDTH 14.5 % (10.0-14.5); WHITE BLOOD COUNT 5.8 10^3/uL (4.3-11.0)
[2018-11-05] MEDS ORDERED: KETOROLAC 30 MG/ML VIAL ONE (10:27)
[2018-11-05] MEDS ORDERED: ONDANSETRON 4 MG/2 ML (SDV) Z0FRAN ONE ×2 (10:37→12:26)
[2018-11-05] MEDS ORDERED: KETOROLAC 30 MG/ML VIAL IVP ONE (10:45)
[2018-11-05] MEDS ORDERED: ONDANSETRON 4 MG/2 ML (SDV) Z0FRAN IVP ONE (10:45)
[2018-11-05] MEDS ORDERED: BUP/EPI 0.5% 1:200,000 (SENSORCAINE) 30 ML VIAL ONE (10:46)
[2018-11-05] MEDS ORDERED: fentaNYL INJECTION 100 MCG/2 ML AMP ONE ×2 (10:56→12:28)
[2018-11-05] MEDS ORDERED: MIDAZOLAM 2 MG/2 ML (VERSED) VIAL ONE (10:56)
[2018-11-05] MEDS ORDERED: proPOfol 200 MG/20 ML (DIPRIVAN) VIAL IV ONE (12:26)
[2018-11-05] MEDS ORDERED: LIDOCAINE PF 2% 5 ML (XYLOCAINE) VIAL ONE (12:26)
[2018-11-05] MEDS ORDERED: SEVOFLURANE (ULTANE) 15 ML INHAL SOLN ONE ×4 (12:26→15:06)
[2018-11-05] MEDS ORDERED: ROCURONIUM 10 MG/ML 5 ML SYRINGE IV ONE (12:26)
[2018-11-05] MEDS ORDERED: DEXAMETHASONE 10 MG/ML (DECADRON) 1 ML VIAL ONE (12:26)
--- NOTE | 2018-11-05 12:51 | Progress Note-Post Operative ---
Post-Operative Progess Note Surgeon (s)/Children'S Minister (s) Surgeon OMER ARREOLA MD Children'S Minister: tono mcdonald WIRE STRETCHER Pre-Operative Diagnosis symptomatic biliary dyskinesia, GERD Post-Operative Diagnosis biliary dyskinesia, reflux esophagitis(stage 2), moderate gastritis. Procedure & Operative Findings Date of Procedure 11/05/18 Procedure Performed/Findings laparoscopic cholecystectomy. EGD with bx. Anesthesia Type GET Estimated Blood Loss Estimated blood loss (mL): minimal Specimens/Packing Specimens Removed gallbladder, ge jxn, antrum OMER ARREOLA MD Nov 05, 2018 12:51
--- NOTE | 2018-11-05 12:54 | Anesthesia-General Post-Op ---
General Patient Condition Mental Status/LOC: Same as Preop Cardiovascular: Satisfactory Nausea/Vomiting: Absent Respiratory: Satisfactory Pain: Controlled Complications: Absent Post Op Complications Complications None Follow Up Care/Instructions Patient Instructions None needed. Anesthesia/Patient Condition Patient Condition Patient is doing well, no complaints, stable vital signs, no apparent adverse anesthesia problems. No complications reported per nursing. CELINA PEREZ CRNA Nov 05, 2018 12:54
[2018-11-05] MEDS ORDERED: morphine INJ 10 MG/ML 1ML (SYR OR VIAL) IVP ONE (13:00)
[2018-11-05 13:40] VITALS: BP 130/84
[2018-11-05] MEDS ORDERED: PANT40TA2 PO (13:49)
[2018-11-05 14:10] VITALS: BP 141/93
[2018-11-05 14:40] VITALS: BP 138/86
[2018-11-05 14:50] VITALS: BP 138/86
[2018-11-05] MEDS ORDERED: NEOSTIGMINE 1 MG/ML 5 ML SYRINGE ONE (15:06)
[2018-11-05] MEDS ORDERED: GLYCOPYRROLATE 0.2 MG/ML (ROBINUL) 2 ML VIAL ONE ×2 (15:06)
--- NOTE | 2018-11-05 18:16 | OPERATIVE REPORT ---
DATE OF SERVICE: 11/05/2018 ATTENDING [employer] ED TEACHER: PORTER Esparza. PREOPERATIVE DIAGNOSES: Symptomatic biliary dyskinesia, gastroesophageal reflux disease. POSTOPERATIVE DIAGNOSES: Symptomatic biliary dyskinesia, reflux esophagitis, stage II and moderate gastritis. PROCEDURES PERFORMED: 1. Laparoscopic cholecystectomy. 2. Esophagogastroduodenoscopy with biopsy. SURGEON: Omer Arreola MD. CAPTAIN/AIRLINE PILOT: Shashank Wynn APRN. ANESTHESIA: General endotracheal. ESTIMATED BLOOD LOSS: Minimal. FINDINGS: Dilated gallbladder with mild gallbladder wall thickening, no stones identified. Reflux esophagitis, stage II, no significant hiatal hernia, and moderate gastritis. No formal ulcerations, polyps or any neoplasms. DISPOSITION: The patient tolerated the procedure well. INDICATIONS: The patient is a 27-year-old female with epigastric burning sensation as well as right upper abdominal quadrant pain. She reports that she has had these symptoms for several years; however, in the past 3 months, she has had the development of intermittent bloating associated with these symptoms. She states that this is usually after eating a meal and will also have diarrhea. She also reports the new symptom of radiation of pain towards the back. She has also had some reflux type of symptoms in the past and has taken antacids with some relief; however, has become ineffective. An ultrasound was performed, which did not show any gallstones; however, HIDA scan did show reproduction of symptoms after administration of a Kinevac analogue consistent with a biliary dyskinesia. DESCRIPTION OF PROCEDURE: The patient was brought to the operating room, laid supine on the table. After adequate IV pain and sedative medications and general endotracheal intubation, the abdomen was prepped and draped in standard surgical fashion. A 0.5% Marcaine with epinephrine was then used to anesthetize the overlying skin in the left upper abdominal quadrant and a skin incision was made using a 15-blade. An #0 silk suture was applied to the medial aspect of the incision for traction and a Veress needle inserted with a low opening pressure of 0 mmHg and the abdomen was insufflated to 15 mmHg pressure. The Veress needle removed and a 5 mm Xcel trocar placed followed by a 5 mm 45-degree angle laparoscope visualizing the peritoneal cavity. A 4-quadrant abdominal exploration was performed. There was a mild hepatomegaly. There was a slightly dilated gallbladder identified. Under direct visualization, we then proceed to place a supraumbilical 10 mm port after the skin and peritoneal lining were anesthetized using 0.5% Marcaine with epinephrine and a transverse skin incision made using 15-blade. In a similar manner, a right upper abdominal quadrant 5 mm port was placed. The patient was then placed in reverse Trendelenburg position as well as plane right side up, left side down. The fundus of the gallbladder was then retracted anteriorly and superiorly. The hepatoduodenal ligament was then opened using a blunt dissection as well as electrocautery and hook instrument. The entire critical view of safety was identified including the triangle of Calot as well as the cystic duct and artery as the only two structures going into the gallbladder as well as the cystic plate behind the proximal gallbladder. A timeout was then taken and the cystic duct and artery were then clipped proximally, distally and cut with EndoShears. The gallbladder was then dissected off the liver bed using cautery and hook instrument with visualization of good hemostasis as well as no leaking ducts of Luschka. The gallbladder was removed through the 10 mm port site using EndoCatch bag. The 10 mm port site fascia and peritoneum were then closed under direct visualization using a Aman-Lelia device and #0 Vicryl suture. The abdomen was desufflated and remaining ports were removed. All skin incisions were closed using 4-0 Monocryl running subcuticular sutures. Wounds were then cleaned and covered with Dermabond. The patient tolerated this portion of the procedure well. We will start IV and oral pain medication as well as a clear liquid diet. Once she is tolerating clears, has good pain control with oral pain medications and ambulating well, we will discharge her home. She will be instructed to do no heavy lifting or exertion for the next two weeks. Under the same anesthesia, we then proceeded with the EGD portion of procedure. The mouthpiece was applied. The endoscope was placed in the mouth, visualizing the pharynx and hypopharyngeal region. Vocal cords, epiglottis and vallecula identified and appeared to be normal. The endoscope was then gently intubated at the esophageal opening and esophagus was insufflated. The endoscope was then advanced to the first, second and third portion of the esophagus at the level of the GE junction, a reflux esophagitis stage II identified. There were no ulcers or strictures identified in this region. A biopsy was taken with forceps with visualization of good hemostasis. The endoscope was then advanced in the stomach and endoscope retroflexed visualizing no significant hiatal hernia. There was a moderate severity gastritis towards the stomach antrum; however, no formal ulcerations, polyps or any neoplasms. A biopsy was taken of the antrum with forceps to rule out H. pylori with visualization of good hemostasis. The endoscope was then advanced to the pylorus and the first and second portion of duodenum, which appeared normal with no distal obstructions. The endoscope was then slowly withdrawn while taking a second look and suctioning of residual air with no additional findings. The patient tolerated the procedure well. We will recommend the necessary lifestyle and diet accommodation including small and more frequent meals, avoidance of eating at night as well as head elevation while lying supine. She also needs to avoid caffeinated beverages, spicy, greasy and acidic foods as well as proceed with any type of a diet and exercise modality for weight maintenance. We will also start her on Protonix 40 mg daily. Job ID: [id number] DocumentID: [id number] Dictated Date: 11/05/2018 12:59:30 Rattle Leak And Squeak Repairer Date: 11/05/2018 18:16:15 Dictated By: OMER ARREOLA MD MTDD
== END 2018-11-05 15:05 | disposition home or self-care (01) ==
LOC: SDC 09:17
PROVIDERS: ATTEND Surgery
DX: K81.1 Chronic cholecystitis (principal); K82.8 Other specified diseases of gallbladder; K21.0 Gastro-esophageal reflux disease with esophagitis; K29.70 Gastritis, unspecified, without bleeding; Z11.2 Encounter for screening for other bacterial diseases; J45.909 Unspecified asthma, uncomplicated; F41.9 Anxiety disorder, unspecified; F32.9 Major depressive disorder, single episode, unspecified; Z80.3 Family history of malignant neoplasm of breast; E66.01 Morbid (severe) obesity due to excess calories; Z68.42 Body mass index [BMI] 45.0-49.9, adult
CPT/HCPCS: 36415; 84703; 85025; 87081; 94664